=== PATIENT | male | born 1995 | race African-American/Black ===

== ENCOUNTER 2016-12-07 08:30 | Emergency (ER) | payer SELFPAY ==
[~2016-12-07] VITALS: Ht 172.7 cm; Wt 84.0 kg
[2016-12-07 08:32] VITALS: BP 158/77; PULSE 71; RESP 15; TEMP 98.3; O2SAT 99
[2016-12-07] MEDS ORDERED: VALT1TAB PO (09:13)
--- NOTE | 2016-12-07 09:13 | PD ---
HPI Chief Complaint: Skin Problem Time Seen by Provider: 09:00 Travel History International Travel<30 days: No Contact w/Intl Traveler<30days: No Traveled to known affect area: No History of Present Illness HPI Patient is a pleasant 21-year-old male presents emergency Department with complaint of rash. Patient states that he had unprotected sex in a proximally 4 days later he began to notice a rash on the tip of the penis, suprapubic region, and the fingers bilaterally right greater than left. Patient states that here and protect sex with a new partner. The rash on the penis developed first. This is on the glans, on the left side. He states that it is minimally painful and has a burning type sensation, itching. He also notes several small bumps on the suprapubic region. He then noticed areas on the hands, right greater than left. He denies any history of sexual transmitted disease or infection. He admits that he had penile penetration in the vagina and he also had fingers and the vagina during intercourse at this female. [facility] Past Medical History Medical History: Denies Significant Hx Past Surgical History Surgical History: No Previous Surgery Social History Alcohol Use: Yes Tobacco Use: Yes Substance Use: No Allergies-Medications (Allergen,Severity, Reaction): Coded Allergies: No Known Allergies (Unverified , 12/07/16) Reported Meds & Prescriptions Reported Meds & Active Scripts Active Valtrex (Valacyclovir HCl) 1 Gm Tab 1,000 Mg PO BID 10 Days Review of Systems Except as stated in HPI: all other systems reviewed are Neg Physical Exam Narrative GENERAL: Well-appearing male in no acute distress SKIN: Excoriated vesicular appearing lesions on the fingers and mons pubis HEAD: Normocephalic. EYES:. No scleral icterus. No injection or drainage. ENT: Mucous membranes pink and moist. NECK: Supple CARDIOVASCULAR: Regular rate and rhythm. RESPIRATORY: No accessory muscle use. GASTROINTESTINAL: Abdomen soft, non-tender, nondistended. GENITOURINARY: External male genitalia with vesicular excoriated-appearing lesions on the glans penis on the left. No evidence of chancre, chancroid. No testicular pain, tenderness or scrotal lesion. No lymphadenopathy. MUSCULOSKELETAL: Normal gait NEUROLOGICAL: Awake and alert. Normal speech. PSYCHIATRIC: Appropriate mood and affect; insight and judgment normal. Data Data Last Documented VS Vital Signs Date Time Temp Pulse Resp B/P Pulse Ox O2 Delivery O2 Flow Rate FiO2 12/07/16 08:32 98.3 71 15 158/77 99 Orders Gc And Chlamydia Pcr (12/07/16 09:06) Hiv Antibody Screen (12/07/16 09:06) Rapid Plasmin Reagin Screen (12/07/16 09:06) Hepatitis Profile (12/07/16 09:06) Hsv 1,2 Abs Igm (12/07/16 09:06) MDM Medical Decision Making Medical Screen Exam Complete: Yes Emergency Medical Condition: Yes Medical Record Reviewed: Yes Differential Diagnosis 21-year-old male here with complaint of rash after unprotected sex to the general region and hands bilaterally. Examination is fairly suspicious for herpes simplex, differential includes HIV, syphilis, and less likely gonorrhea, chlamydia, hepatitis. Narrative Course Patient will be treated empirically with Valtrex for herpes. HIV, syphilis, HSV , hepatitis, gonorrhea and Chlamydia were ordered and sent. Diagnosis Primary Impression: Herpes simplex Additional Impression: Screening examination for STD (sexually transmitted disease) Referrals: [facility] Dept. as needed Additional Instructions: Valtrex as prescribed. Med/Other Pt SpecificInfo: Prescription(s) given Scripts Valacyclovir (Valtrex)1 Gm Tab1,000 Mg PO BID 10 Days Ref 0 Prov:Addie Botello MD 12/07/16 Disposition: 01 DISCHARGE HOME Condition: Stable Addie Botello MD December 07, 2016 09:13
[2016-12-07 11:10] LABS: RAPID PLASMA REAGIN SCREEN NON-REACTIVE (NON-REACTVE)
[2016-12-07 14:00] LABS: CHLAMYDIA PCR NOT DETECTED (NOT DETECT); NEISSERIA PCR NOT DETECTED (NOT DETECT)
[2016-12-09 23:53] LABS: HSV2 IGM IFA NEGATIVE (())
[2016-12-10 09:41] LABS: HSV IGM 1 TITER ND TITER; HSV IGM II TITER ND TITER
== END 2016-12-07 09:37 | disposition home or self-care (01) ==
LOC: NEPD 08:30
DX: B00.9 Herpesviral infection, unspecified (principal); Z72.0 Tobacco use; Z11.3 Encounter for screening for infections with a predominantly sexual mode of transmission
CPT/HCPCS: 80074; 86592; 86695; 86696; 86703; 87491; 87591; 99283

== ENCOUNTER 2017-03-02 12:44 | Emergency (ER) | payer OTHER ==
[~2017-03-02] VITALS: Ht 154.9 cm; Wt 82.0 kg
[~2017-03-02 12:44] MED LIST: VALT1TAB PO
[2017-03-02 12:47] VITALS: BP 150/97; PULSE 74; RESP 20; TEMP 98.2; O2SAT 99
--- NOTE | 2017-03-02 12:50 | PD ---
Physical Exam Date Seen by Provider: Mar 02, 2017 Time Seen by Provider: 12:47 Narrative 21 yo male here for right eye swelling and irritation. Going on since tuesday. Not improving with warm compresses. No drainage or loss of vision. Slightly painful. No trauma. Vitals are stable in triage. Awaiting bed placement. [facility] Medical Record Reviewed: Yes Supervised Visit with EB: Aubrey Hewitt Mar 02, 2017 12:49
[2017-03-02] MEDS ORDERED: IBUP800T23 PO (13:38)
[2017-03-02] MEDS ORDERED: ERYTOIN10 RIGHT EYE (13:38)
--- NOTE | 2017-03-02 13:39 | PD ---
HPI Chief Complaint: Eye Problems/Injury Time Seen by Provider: 13:36 Travel History International Travel<30 days: No Contact w/Intl Traveler<30days: No Traveled to known affect area: No History of Present Illness HPI 21-year-old male presents emergency Department with complaint of a stye to his right upper eyelid since Tuesday. He has history of multiple styes as a child with incision and drainage of the styes. He has not had any in a long time but then had one developed to his lower eyelid about 2 weeks ago which he used warm compresses on and it drained on its own. He has been trying warm compresses to the right upper stye for symptom management. Reports it is tender. Denies drainage from the site. Denies change in vision. Denies photophobia. Denies fever, vomiting. Denies recent illnesses including nasal congestion, cough, ear pain, sore throat. Has no other medical complaints. No known allergies. Symptoms are mild in severity. No other modifying factors or associated signs and symptoms. [facility] Social History Alcohol Use: Yes Tobacco Use: Yes Substance Use: No Allergies-Medications (Allergen,Severity, Reaction): Coded Allergies: No Known Allergies (Unverified , 03/02/17) Reported Meds & Prescriptions Reported Meds & Active Scripts Active Ibuprofen 800 Mg Tab 800 Mg PO Q6HR PRN Erythromycin Opth Oint 5 Mg/Gm Oint 1 Applic RIGHT EYE QID 7 Days Review of Systems Except as stated in HPI: all other systems reviewed are Neg Physical Exam Narrative GENERAL: Well-nourished, well-developed male patient, in no acute distress; afebrile, nontoxic-appearing SKIN: Warm and dry. HEAD: Atraumatic. Normocephalic. EYES: Pupils equal and round at 3 mm with brisk reaction. PERRLA. EOMI. right lid eversion with no foreign body noted. Right upper outer eyelid with mild edema, erythema, and tenderness on palpation; without drainage; sclerae are without erythema. No orbital tenderness, erythema or cellulitis. Right eye without photophobia. No consensual photophobia. No scleral icterus. No drainage. ENT: Mucosa pink and moist. Airway patent. NECK: Trachea midline. CARDIOVASCULAR: Regular rate. RESPIRATORY: No accessory muscle use. GASTROINTESTINAL: Flat. NEUROLOGICAL: Awake and alert. Oriented 3. No obvious cranial nerve deficits. Motor grossly within normal limits. Normal speech. PSYCHIATRIC: Appropriate mood and affect; insight and judgment normal. Data Data Last Documented VS Vital Signs Date Time Temp Pulse Resp B/P (MAP) Pulse Ox O2 Delivery O2 Flow Rate FiO2 03/02/17 12:47 98.2 74 20 150/97 (114) 99 Room Air MDM Medical Decision Making Medical Screen Exam Complete: Yes Emergency Medical Condition: Yes Medical Record Reviewed: Yes Differential Diagnosis Hordeolum, chalazion, foreign body Narrative Course 21-year-old male with a hordeolum to the right upper eyelid since Tuesday. He has history of styes as a child with incision and drainage. Patient is afebrile and nontoxic-appearing. Denies fever, vomiting. Instructed patient to continue warm compresses. Ibuprofen administered in the ER. Ibuprofen and erythromycin ointment prescribed for home. Inserted patient to follow up with orthotic/prosthetic practitioner as needed. Instructed patient to follow up with primary care provider. Patient verbalizes understanding and agreement with treatment plan. Patient is medically cleared and stable for discharge. Discussed reasons to return to the emergency department. Patient agrees with treatment plan. The patients vital signs are stable and the patient is stable for outpatient follow- up and treatment. Patient discharged home, stable and in no acute distress. Diagnosis Primary Impression: Hordeolum of right upper eyelid Qualified Codes: H00.011 - Hordeolum externum right upper eyelid Referrals: [facility] Primary Care Physician Patient Instructions: General Instructions, [place] (ED) Departure Forms: Tests/Procedures, Work Release Enter return to work date: Mar 03, 2017 Additional Instructions: Do not try to pop the sty or squeeze pus from the sty Clean your eyelid gently with mild soap and water Warm compresses to affected eye 3-4 times daily to encourage the sty to drain on its own Keep your eye clean; don't wear makeup Do not wear contact lenses; go without contact lenses until this diagnosis away Follow-up with ophthalmology as needed Follow-up with primary care provider Return to the emergency department immediately with worsening of symptoms Med/Other Pt SpecificInfo: Prescription(s) given Scripts Ibuprofen (Ibuprofen) 800 Mg Tab 800 MG PO Q6HR Y for PAIN, #30 TAB 0 Refills Prov: Stella Richey [employer] 8/23/17 Erythromycin Opth Oint (Erythromycin Opth Oint) 5 Mg/Gm Oint 1 APPLIC RIGHT EYE QID for Infection for 7 Days, #1 TUBE 0 Refills Prov: Stella Richey 03/02/17 Disposition: 01 DISCHARGE HOME Condition: Stable Stella Richey Mar 02, 2017 13:39
[2017-03-02] MEDS ORDERED: IBUPROFEN 800 MG TAB PO ONE (13:45)
== END 2017-03-02 14:05 | disposition home or self-care (01) ==
LOC: NEPK 12:44
DX: H00.011 Hordeolum externum right upper eyelid (principal); Z72.0 Tobacco use
CPT/HCPCS: 99283